=== PATIENT | female | born 1945 | race Caucasian/White ===

== ENCOUNTER → 2017-01-05 | Outpatient (CLI) | payer MEDICARE, BC ==
[~2017-01-05] MED LIST: ACETAMINOPHEN; ALLEGRA; ALPRAZOLAM; ALPRAZOLAM PO; AMLODIPINE BESYL5 MG PO; ANTIVERT; ASPIRIN; ASPIRINEC; ATENOLOL; AVAPRO; COMBIVENT INH14.7 GM; ESCITALOPRAM OX10 MG PO; ESCITALOPRAM OX20 MG PO; FLONASE16 GM; FUROSEMIDE40 MG PO; FUROSEMIDE80 MG PO; MOBIC PO; NABUMETONE; NAMENDA XR28 MG PO; PANTOPRAZOLE SO40 MG PO; PRILOSEC; PROTONIX PO; RISPERDAL0.5 M2 DOB; RISPERIDONE PO; SIMVASTATIN20 MG PO; TENORMIN25 M1 PO; TENORMIN25 MG PO; VIBRAMYCIN50 MG PO; ZOCOR PO
== END | disposition home or self-care (01) ==
LOC: CSSDAY 11:18
DX: M81.0 Age-related osteoporosis without current pathological fracture (principal)
CPT/HCPCS: 36415; 82310; 96372; J0897

== ENCOUNTER 2017-04-17 17:30 | Emergency (ER) | payer MEDICARE, BC ==
[~2017-04-17] VITALS: Ht 152.4 cm; Wt 75.7 kg
--- NOTE | ~2017-04-17 | EKG ---
PATIENT: MELY SPRINGER UNIT #: [id number] Ventricular Rate: 107 BPM Atrial Rate: 107 BPM P-R Interval: 126 ms QRS Duration: 94 ms Q-T Interval: 396 ms QTC Calculation(Bezet): 528 ms P [place]: 66 degrees Calculated R [place]: -171 degrees Calculated T [place]: -93 degrees Diagnosis Line: Sinus tachycardia with Premature supraventricular Diagnosis Line: complexes Diagnosis Line: Right superior axis deviation Diagnosis Line: Low voltage QRS Diagnosis Line: Inferior infarct , age undetermined Diagnosis Line: Cannot rule out Anterior infarct , age Diagnosis Line: undetermined Diagnosis Line: Prolonged QT Diagnosis Line: Abnormal ECG Diagnosis Line: No previous ECGs available Diagnosis Line: Confirmed by ALEX HOLGUIN MD ([id number]) on Diagnosis Line: 04/19/2017 4:43:35 PM INTERPRETING MD: VINCENT
--- NOTE | ~2017-04-17 | CR72 ---
[facility] A Service of [facility] & [facility] RADIOLOGY TEXT RESULTS PATIENT: MELY SPRINGER LOCATION: [facility] : 49 UNIT #: [id number] AGE: [address]: Guille Yen MD SEX: F ORDER DR: [id number] [facility] [address] [place], [place] [address] [id number] MR#: [id number] Acc #: [id number] NAME: MELY SPRINGER. : 1945 SEX: F STUDY DATE/TIME: 04/17/2017 18:25 UNIT: [facility] ROOM: STUDY DESCRIPTION: CR Chest Single View Portable Attending Physician: Eriberto Yen M.D. Ordering Physician: Ed Doctor [id number] [facility] Primary Care Physician: Wendy Keyes M.D. MEDICAL IMAGING REPORT This report is preliminary unless electronic signature is present EXAM Portable chest HISTORY Short of air, hypoxia. Symptoms started 04/17/2017. History of asthma and essential hypertension COMMENT Two views of the chest submitted for review. The films are limited by the patient's immobility. There is a comparison study from 03/04/2016. There is borderline cardiac silhouette enlargement. There is a small amount of airspace disease at the right lung base laterally. This is nonspecific and could be atelectasis, aspiration or early pneumonia. Followup to clearing is recommended. Otherwise the lungs are clear and there is no congestive failure, definite pleural effusion or pneumothorax seen. There is calcification at the aortic knob. IMPRESSION 1. Small amount of airspace disease at the right base which could be a small amount of atelectasis but alternate considerations include aspiration or pneumonia. Followup to clearing is recommended. 2. Borderline cardiac silhouette enlargement. Dictated by... Meena Franco M.D. THIS IS AN ELECTRONICALLY VERIFIED REPORT Meena Franco M.D. at 04/20/2017 1:57 PM Gisselle TD: 04/18/2017 09:51 JOB #: [id number] [facility] A Service of [facility] & [facility] RADIOLOGY TEXT RESULTS PATIENT: MELY SPRINGER LOCATION: [facility] #: [id number] : 49 UNIT #: [id number] AGE: [address]: Guille Yen MD SEX: F ORDER DR: MEDICAL IMAGING REPORT Page 1 of 1 COPY
[~2017-04-17 17:30] MED LIST changes: -ESCITALOPRAM OX10 MG PO; -FUROSEMIDE80 MG PO; -MOBIC PO; -PANTOPRAZOLE SO40 MG PO; -RISPERIDONE PO; -TENORMIN25 MG PO; -VIBRAMYCIN50 MG PO; -ZOCOR PO
[2017-04-17] MEDS ORDERED: RISPERIDONE PO (17:45)
[2017-04-17] MEDS ORDERED: ESCITALOPRAM OX10 MG PO (17:45)
[2017-04-17] MEDS ORDERED: ZOCOR PO (17:46)
[2017-04-17] MEDS ORDERED: MOBIC PO (17:46)
[2017-04-17] MEDS ORDERED: PANTOPRAZOLE SO40 MG PO (17:46)
[2017-04-17] MEDS ORDERED: FUROSEMIDE80 MG PO (17:46)
[2017-04-17] MEDS ORDERED: TENORMIN25 MG PO (17:46)
[2017-04-17] MEDS ORDERED: NAMENDA XR28 MG PO (17:47)
[2017-04-17] MEDS ORDERED: VIBRAMYCIN50 MG PO (17:47)
[2017-04-17 18:31] LABS: POC - CKMB 2.9 ng/mL (0.0-7.9); POC - TROPONIN 0.05 ng/mL (<=0.05)
[2017-04-17 18:39] LABS: BASOPHIL% 0.2 % (0-2.5); EOSINOPHIL% 0.1 % (0.0-7.0); HEMATOCRIT 47.5 % (35.0-45.0); HEMOGLOBIN 15.9 gm/dL (12.0-16.0); LYMPHOCYTE# 3.7 X10e3 (1.0-3.5); LYMPHOCYTE% 20.3 % (17.0-45.0); MEAN CELL VOLUME 92.4 FL (83-96); MEAN CORPUSCULAR HEMOGLOBIN 30.9 PG (28-34); MEAN CORPUSCULAR HGB CONC 33.4 g/dL (30-36); MEAN PLATELET VOLUME 8.8 FL (6.5-11.5); MONOCYTE# 1.7 X10e3 (0-1.0); MONOCYTE% 9.1 % (3.0-12.0); NEUTROPHIL% 70.3 % (40-75); PLATELET COUNT 238 X10e3 (140-420); RED BLOOD COUNT 5.14 X10e (3.90-5.30); RED CELL DISTRIBUTION WIDTH 13.3 % (11.0-15.5); WHITE BLOOD COUNT 18.5 X10e3 (4.0-10.5)
[2017-04-17 18:40] LABS: DIFF IND YES
[2017-04-17 19:01] LABS: BUN/CREATININE RATIO 20.62; CREATININE SERUM 1.6 mg/dL (0.6-1.4); GLOM FILT RATE Estimated 32.6 mL/min (>60); POTASSIUM 3.2 mmol/L (3.5-5.1)
[2017-04-17 19:04] LABS: ANISOCYTOSIS SL; PLATELET ESTIMATE NORMAL (NORMAL)
== END 2017-04-17 19:58 | disposition expired ==
LOC: CED 17:30
PROVIDERS: Emergency Medicine
DX: J96.00 Acute respiratory failure, unspecified whether with hypoxia or hypercapnia (principal); J69.0 Pneumonitis due to inhalation of food and vomit; I11.0 Hypertensive heart disease with heart failure; I50.9 Heart failure, unspecified; E78.5 Hyperlipidemia, unspecified; Z86.73 Personal history of transient ischemic attack (TIA), and cerebral infarction without residual deficits; F17.210 Nicotine dependence, cigarettes, uncomplicated; Z88.0 Allergy status to penicillin; Z88.1 Allergy status to other antibiotic agents; Z88.8 Allergy status to other drugs, medicaments and biological substances; R05 Cough
CPT/HCPCS: 36415; 71010; 80048; 82553; 83605; 83880; 84484; 85025; 87040; 92950; 93005; 99285; J0171; J0282; J0461; J0696